=== PATIENT | female | born 1995 | race Caucasian/White ===

== ENCOUNTER 2018-07-09 17:41 | Outpatient (CLI) | payer MEDICAID ==
--- NOTE | 2018-07-09 21:09 | Ultrasound Report ---
Reason: OVARIAN CYST Procedure Date: 07/09/2018 Accession Number: [id number] / [id number] Procedure: US - Pelvic w/Transvaginal CPT Code: FULL RESULT: EXAM: PELVIC ULTRASOUND EXAM DATE: 07/09/2018 08:27 PM. CLINICAL HISTORY: Pelvic pain. OVARIAN CYST. COMPARISON: None. TECHNIQUE: Realtime transabdominal pelvic scan performed to identify the uterus and adnexa and as an overview of other pelvic structures, followed by transvaginal scan to provide greater detail of the uterus and adnexa, with static image documentation. FINDINGS: Uterus: 7.4 x 4.6 x 2.6 cm, volume 46 cc. Anteverted position. Normal overall size and echotexture. Masses: None. Endometrium: 4.6 mm. Normal. Intrauterine device is in place. Cervix: Unremarkable. Right Ovary: 3 x 2.2 x 1.6 cm, volume 5.5 cc. Normal echotexture and blood flow. Left Ovary: 4.9 x 1.7 x 1.7 cm, volume 7.4 cc. 4 x 1.2 x 1.3 cm elongated left ovarian cyst with mild debris. Blood flow is seen in the left ovary. Free Fluid: Mild free fluid in the pelvis. IMPRESSION: 1. Mildly complex elongated left ovarian cyst. Recommend a 6-12 week follow-up pelvic ultrasound to confirm resolution. 2. Small free fluid in the pelvis. [facility] The call report notification system was initiated by Dr. Linda Iglesias at 20:59 hrs on 07/09/18. The above findings were discussed with Dr. Chairez by Dr. Linda Iglesias at 21:08 hrs on 07/09/18.
== END 2018-07-09 17:42 | disposition home or self-care (01) ==
LOC: DI 17:41
PROVIDERS: ATTEND Physician Assistant Medical
DX: N83.292 Other ovarian cyst, left side (principal)
CPT/HCPCS: 76830; 76856